=== PATIENT | male | born 1960 | race Hispanic/Latino ===

== ENCOUNTER 2018-02-02 19:45 | Emergency (ER) | payer OTHER ==
[~2018-02-02] VITALS: Ht 170.2 cm; Wt 123.0 kg
[2018-02-02] MEDS ORDERED: MEDDOSEPAK PO (21:21)
[2018-02-02] MEDS ORDERED: PERCOCET 10/31 COMBO PO (21:21)
[2018-02-02 21:35] VITALS: BP 133/85
== END 2018-02-02 21:50 | disposition home or self-care (01) | DRG 552 ==
LOC: ED 19:45
DX: M51.36 Other intervertebral disc degeneration, lumbar region (principal); W17.89XA Other fall from one level to another, initial encounter; Y93.89 Activity, other specified; Y92.89 Other specified places as the place of occurrence of the external cause

== ENCOUNTER 2020-12-12 18:50 | Observation (INO) | payer OTHER ==
[~2020-12-12] VITALS: Ht 170.2 cm; Wt 126.2 kg
[~2020-12-12 18:50] MED LIST: MEDDOSEPAK PO; PERCOCET 10/31 COMBO PO
[2020-12-12 20:17] LABS: HEMATOCRIT 38.7 % (39.0-50.0); HEMOGLOBIN 13.3 g/dl (14.0-18.0); IMMATURE GRANULOCYTES 0.6 % (0.0-5.0); MEAN CELL VOLUME 92.4 fL CALC (80.0-100.0); MEAN CORPUSCULAR HGB 31.7 pG CALC (26.0-32.0); MEAN CORPUSCULAR HGB CONC 34.4 g/dL CAL (32.0-36.0); NEUT# 5.4 thou/uL (1.82-7.42); RED BLOOD COUNT 4.19 mill/uL (4.70-6.10); RED CELL DISTRI WIDTH 12.2 % (11.5-15.5)
[2020-12-12 20:21] LABS: URINE BLOOD DIPSTICK SMALL (NEGATIVE); URINE GLUCOSE - DIPSTICK NEGATIVE (NEGATIVE); URINE KETONE 15 mg/dL (NEGATIVE); URINE LEUK ESTERASE NEGATIVE (NEGATIVE); URINE NITRITE - DIPSTICK NEGATIVE (Negative); URINE PROTEIN - DIPSTICK 100 mg/dL (NEG-TRACE); URINE SPECIFIC GRAVITY >=1.030
[2020-12-12 20:23] LABS: URINE BILIRUBIN - DIPSTICK MODERATE (NEGATIVE); URINE COLOR AMBER
[2020-12-12 20:29] LABS: URINE RBC 0-2 RBC/hpf (0-5)
[2020-12-12 20:30] LABS: URINE MUCUS FEW hpf (NONE-FEW); URINE SPERM MODERATE hpf (NONE-RARE); URINE WBC 0-2 WBC/hpf (0-5)
[2020-12-12 20:35] LABS: ALBUMIN 4.1 g/dL (3.2-5.0); ALKALINE PHOSPHATASE 58 u/l (38-126); ANION GAP 12 (6-22 (CALC)); BILIRUBIN, TOTAL 0.9 mg/dL (0.0-1.4); BUN 15 mg/dL (8-23); BUN/CREATININE RATIO 20 (12-20 (CALC)); CARBON DIOXIDE 25 mmol/l (22-30); CHLORIDE 102 mmol/l (95-108); CREATININE 0.8 mg/dL (0.7-1.3); GFR > 60 ML/MIN (>=60 (CALC)); GFR FOR AFR.AMER. > 60 ML/MIN (>=60 (CALC)); POTASSIUM 3.8 mmol/l (3.5-5.1); SGOT/AST 48 u/l (19-48); SODIUM 136 mmol/l (137-146)
[2020-12-12 20:47] LABS: MYOGLOBIN 183 ng/mL (0 - 121)
[2020-12-12 23:45] VITALS: BP 134/83
[2020-12-13 04:00] VITALS: BP 119/70
[2020-12-13] MEDS ORDERED: ZESTRIL10 M1 PO (11:28)
[2020-12-13] MEDS ORDERED: LEVOTHYROXIN100 MCG PO (11:29)
[2020-12-13] MEDS ORDERED: BAMLANIVIMAB IV (11:33)
[2020-12-13] MEDS ORDERED: AZITHROMYCIN500 MG PO (11:33)
[2020-12-13 11:40] VITALS: BP 133/84
[2020-12-13] MEDS ORDERED: DEXAMETHASON6 MG PO (12:47)
== END 2020-12-13 13:32 | disposition home or self-care (01) | DRG 177 ==
LOC: ED 18:50 → ED-I 22:15 → ED 22:34 → MS2 22:35
PROVIDERS: Emergency Medicine; ADMIT Internal Medicine; ATTEND Internal Medicine
DX: U07.1 COVID-19 (principal); J12.82 Pneumonia due to coronavirus disease 2019; I10 Essential (primary) hypertension; G47.30 Sleep apnea, unspecified
CPT/HCPCS: G0378; Q9967

== ENCOUNTER 2022-01-19 12:19 | Observation (INO) | payer SELFPAY ==
[~2022-01-19] VITALS: Ht 170.2 cm; Wt 124.0 kg
[~2022-01-19 12:19] MED LIST changes: +AZITHROMYCIN500 MG PO; +BAMLANIVIMAB IV; +DEXAMETHASON6 MG PO; +LEVOTHYROXIN100 MCG PO; +ZESTRIL10 M1 PO
[2022-01-19 13:18] LABS: IMMATURE GRANULOCYTES 0.2 % (0.0-5.0); MEAN CELL VOLUME 96.9 fL CALC (80.0-100.0); MEAN CORPUSCULAR HGB 31.9 pG CALC (26.0-32.0); NEUT# 15.11 thou/uL (1.82-7.42); RED BLOOD COUNT 4.79 mill/uL (4.70-6.10); RED CELL DISTRI WIDTH 12.5 % (11.5-15.5)
[2022-01-19 13:20] LABS: HEMATOCRIT 46.4 % (39.0-50.0); HEMOGLOBIN 15.3 g/dl (14.0-18.0)
[2022-01-19 13:28] LABS: ALBUMIN 4.5 g/dL (3.2-5.0); ALKALINE PHOSPHATASE 67 u/l (38-126); AMYLASE 118 u/l (30-110); ANION GAP 15 (6-22 (CALC)); BILIRUBIN, TOTAL 0.9 mg/dL (0.0-1.4); BUN 12 mg/dL (8-23); BUN/CREATININE RATIO 15 (12-20 (CALC)); CARBON DIOXIDE 25 mmol/l (22-30); CHLORIDE 103 mmol/l (95-108); CREATININE 0.8 mg/dL (0.7-1.3); GFR > 60 ML/MIN (>=60 (CALC)); GFR FOR AFR.AMER. > 60 ML/MIN (>=60 (CALC)); LIPASE 150 u/l (23-300); SGOT/AST 30 u/l (19-48); SODIUM 139 mmol/l (137-146)
[2022-01-19] MEDS ORDERED: LORATADINE10 M1 PO (13:35)
[2022-01-19] MEDS ORDERED: ASPIRIN81 MG PO (13:35)
[2022-01-19 17:38] LABS: URINE BILIRUBIN - DIPSTICK NEGATIVE (NEGATIVE); URINE BLOOD DIPSTICK MODERATE (NEGATIVE); URINE COLOR YELLOW; URINE GLUCOSE - DIPSTICK NEGATIVE (NEGATIVE); URINE KETONE NEGATIVE (NEGATIVE); URINE LEUK ESTERASE NEGATIVE (NEGATIVE); URINE PH 6.5 (4.5-8.0); URINE PROTEIN - DIPSTICK TRACE mg/dL (NEG-TRACE)
[2022-01-19 17:39] LABS: URINE NITRITE - DIPSTICK NEGATIVE (Negative)
--- NOTE | 2022-01-19 22:56 | NUR ---
PATIENT TO ROOM VIA WHEELCHAIR ACCOMPANIED BY ER NURSE. PATIENT TRANSFERRED TO BED WITH MINIMAL ASSISTANCE. PT IS ALERT AND ORIENTED X3. ADMISSION ASSESSMENT COMPLETED AT THIS TIME. IV PATENT X1. ORIENTED PATIENT TO ROOM AND UNIT. CALL LIGHT IN REACH. WILL CONTINUE TO MONITOR.
[2022-01-19 23:00] VITALS: BP 120/76
--- NOTE | 2022-01-19 23:00 | NUR ---
PT TRANSPORTED TO [facility] VIA WHEEL CHAIR BY ED STAFF.
--- NOTE | 2022-01-20 | NUR ---
PT RESTING IN BED WITH EYES CLOSED, RESPIRATIONS ARE EQUAL AND NON-LABORED, NO S/SX OF DISTRESS OR DISCOMFORT NOTED, CALL LIGHT WITHIN REACH, WILL CONTINUE TO MONITOR.
[2022-01-20 04:00] VITALS: BP 117/73
[2022-01-20 05:31] LABS: HEMATOCRIT 42.1 % (39.0-50.0); HEMOGLOBIN 13.6 g/dl (14.0-18.0); MEAN CELL VOLUME 97.9 fL CALC (80.0-100.0); MEAN CORPUSCULAR HGB 31.6 pG CALC (26.0-32.0); MEAN CORPUSCULAR HGB CONC 32.3 g/dL CAL (32.0-36.0); RED BLOOD COUNT 4.3 mill/uL (4.70-6.10); RED CELL DISTRI WIDTH 12.6 % (11.5-15.5)
[2022-01-20 05:51] LABS: ANION GAP 14 (6-22 (CALC)); BUN 15 mg/dL (8-23); BUN/CREATININE RATIO 18 (12-20 (CALC)); CARBON DIOXIDE 26 mmol/l (22-30); CHLORIDE 103 mmol/l (95-108); CREATININE 0.9 mg/dL (0.7-1.3); GFR > 60 ML/MIN (>=60 (CALC)); GFR FOR AFR.AMER. > 60 ML/MIN (>=60 (CALC)); MAGNESIUM 2.2 mg/dL (1.6-2.3); SODIUM 139 mmol/l (137-146)
--- NOTE | 2022-01-20 08:00 | NUR ---
SHIFT CHANGE REPORT, PT AWAKE ALERT AND ORIENTED, C/O ACHING ABD PAIN @ 3/10 TO RIGHT ABD, IVF INFUSING, CALL MCMILLAN IN REACH AND BED LOCKED IN LOWEST POSITION.
--- NOTE | 2022-01-20 12:00 | NUR ---
RESTING IN BED, ALL NEEDS ADDRESSED, WILL CONTINUE TO MONITOR.
[2022-01-20 15:30] VITALS: BP 87/33
--- NOTE | 2022-01-20 16:00 | NUR ---
C/O ABD PAIN @ 03/10, CINCERN ADDRESSED WITH POSITIVE RESULTS.
[2022-01-20 19:00] VITALS: BP 108/59
--- NOTE | 2022-01-20 19:59 | NUR ---
PT IC FLUIDS PAUSED, PT WOULD LIKE TO TAKE A SHOWER. IV SITE COVERED WITH AQUAGUARD, BATHROOM SET UP, TOWELS PROVIDED, AND TOILETRIES. ORITNETED PT TO BATHROOM CALL LIGHT SYSTEM AND ISTRUCTED TO CALL IF HELP IS NEEDED.
--- NOTE | 2022-01-21 00:09 | NUR ---
ANTIBIOTIC AND NEW BAG OF NORMAL SALINE HUNG AT THIS TIME. PT DENIES ANY CURRENT PAIN, EDUCATION PROVIDED REGARDING THE USE OF ANTIBIOTICS. CALL LIGHT AND BEDSIDE TABLE WITHIN REACH.
[2022-01-21 05:08] VITALS: BP 115/63
[2022-01-21 05:38] LABS: HEMATOCRIT 44.5 % (39.0-50.0); HEMOGLOBIN 14.9 g/dl (14.0-18.0); MEAN CELL VOLUME 97.4 fL CALC (80.0-100.0); MEAN CORPUSCULAR HGB 32.6 pG CALC (26.0-32.0); MEAN CORPUSCULAR HGB CONC 33.5 g/dL CAL (32.0-36.0); RED BLOOD COUNT 4.57 mill/uL (4.70-6.10); RED CELL DISTRI WIDTH 12.4 % (11.5-15.5)
--- NOTE | 2022-01-21 06:26 | NUR ---
PATIENT UP TO THE RESTROOM. NEW BAG OF ANTIBIOTICS HUNG AT THIS TIME,
[2022-01-21 06:35] LABS: ANION GAP 13 (6-22 (CALC)); BUN 16 mg/dL (8-23); BUN/CREATININE RATIO 20 (12-20 (CALC)); CARBON DIOXIDE 23 mmol/l (22-30); CHLORIDE 108 mmol/l (95-108); CREATININE 0.8 mg/dL (0.7-1.3); GFR > 60 ML/MIN (>=60 (CALC)); GFR FOR AFR.AMER. > 60 ML/MIN (>=60 (CALC)); MAGNESIUM 2.4 mg/dL (1.6-2.3); POTASSIUM 3.8 mmol/l (3.5-5.1); SODIUM 140 mmol/l (137-146)
[2022-01-21 08:32] VITALS: BP 95/75
--- NOTE | 2022-01-21 08:45 | NUR ---
RECEIVE REPORT FROM JOYCE LR. PATIENT ALERT AND ORIENTED. NO RESPIRATORY DISTRESS, NO PAIN AT THIS TIME. EDUCATED PATIENT ABOUT MEDICATIONS AND PLAN OF CARE. PATIENT REFER UNDERSTAND.
[2022-01-21 15:41] VITALS: BP 115/63
[2022-01-21 18:43] VITALS: BP 125/71
--- NOTE | 2022-01-21 19:55 | NUR ---
PATIENT ALERT AND ORIENTED. [place]ESE SPEAKING BUT IS ABLE TO UNDERSTAND SOME SAMI. ASSESSMENT COMPLETE. RATES PAIN OF 2 BUT REFUSED PAIN MEDICATION. PAIN LOCATED LOWER RIGHT ABDOMEN AND RADIATES TO THE BACK. NO SIGNS OF DISTRESS. PATIENT REMAINS NPO PER ORDERS. IV FLUIDS REMAIN INFUSING PER ORDERS. CALL LIGHT AND BELONGINGS REMAIN IN REACH.
--- NOTE | 2022-01-21 23:50 | NUR ---
PATIENT RESTING IN BED QUIETLY. NO COMPLAINTS VOICED AT THIS TIME. NEW BAG OF IVF HUNG. IV ZOSYN HUNG PER ORDERS WELL. CALL LIGHT AND BELONGINGS REMAIN IN REACH.
[2022-01-22 04:00] VITALS: BP 118/63
--- NOTE | 2022-01-22 04:15 | NUR ---
RESTING IN BED. NO COMPLAINTS VOICED AT THIS TIME. CALL LIGHT AND BELONGINGS REMAIN IN PATIENTS REACH.
[2022-01-22 06:03] LABS: MEAN CELL VOLUME 97.2 fL CALC (80.0-100.0); MEAN CORPUSCULAR HGB 32.1 pG CALC (26.0-32.0); RED BLOOD COUNT 3.96 mill/uL (4.70-6.10); RED CELL DISTRI WIDTH 12.2 % (11.5-15.5)
[2022-01-22 06:16] LABS: HEMATOCRIT 38.5 % (39.0-50.0); HEMOGLOBIN 12.7 g/dl (14.0-18.0)
[2022-01-22 06:25] LABS: ANION GAP 12 (6-22 (CALC)); BUN 12 mg/dL (8-23); BUN/CREATININE RATIO 17 (12-20 (CALC)); CARBON DIOXIDE 22 mmol/l (22-30); CHLORIDE 108 mmol/l (95-108); CREATININE 0.7 mg/dL (0.7-1.3); GFR > 60 ML/MIN (>=60 (CALC)); GFR FOR AFR.AMER. > 60 ML/MIN (>=60 (CALC)); POTASSIUM 3.9 mmol/l (3.5-5.1); SODIUM 139 mmol/l (137-146)
--- NOTE | 2022-01-22 08:00 | NUR ---
PT SITTING IN BED. A&O X3. NO DISTRESS NOTED. PT DENIES ANY PAIN OR N&V. DOES STATE PAIN IS BETTER COMPARED TO YESTERDAY ALTHOUGH STILL C/O OF SLIGHT DISCOMFORT IN RLQ. CLEAR BREATH SOUNDS UPON AUSUCLTATION. ACTIVE BOWEL SOUNDS X4 QUADRANTS. IV HEALTHY AND PATENT WITH IVF INFUSING PER MAR ORDER. NO OTHER NEEDS AT THIS TIME. ASSESSMENT COMPLETED. DISCUSSED POC. CALL LIGHT WITHIN REACH.
--- NOTE | 2022-01-22 09:30 | NUR ---
PER JUAN MANUEL IN [place], PT ALLOWED TO HAVE BREAKFAST IF PERMITTED; NUCLEAR MED DOSE NOT AVAILABLE AT THIS TIME; PT TO HAVE SCAN COMPLETED AT OR AFTER 2 PM. PT REQUIRED TO BE NPO 4-6 HOURS PRIOR TO SCAN; NO PAIN MEDICATION ALSO FOR 4-6 HOURS PRIOR TO SCAN.
--- NOTE | 2022-01-22 10:57 | NUR ---
PHYSICIAN AT BEDSIDE.
--- NOTE | 2022-01-22 12:15 | NUR ---
PT SITTING IN BED. NO DISTRESS NOTED. CALL LIGHT WITHIN REACH.
--- NOTE | 2022-01-22 12:49 | NUR ---
DR MCKEON AT BEDSIDE DISCUSSING POC
--- NOTE | 2022-01-22 17:13 | NUR ---
PT UPGRADED TO REGULAR DIET; DENIES ANY PAIN AT THIS TIME. CALL LIGHT WITHIN REACH.
--- NOTE | 2022-01-22 18:10 | NUR ---
PT SITTING ON THE SIDE OF THE BED EATING DINNER. PT TOLERATING DINNER WELL DENIES ANY PAIN. CALL LIGHT WITHIN REACH.
[2022-01-22 18:23] VITALS: BP 140/77
--- NOTE | 2022-01-22 19:25 | NUR ---
PATIENT RESTING IN BED ON HIS RIGHT SIDE. DENIES ANY PAIN. NO SIGNS OF DISTRESS. ASSESSMENT COMPLETE. NO BOWEL MOVEMENT NOTED. NO COMPLAINTS OF NAUSEA. NO TENDERNESS TO ABDOMEN. CALL LIGHT AND BELONGINGS REMAIN IN REACH.
--- NOTE | 2022-01-23 00:39 | NUR ---
PATIENT RESTING IN BED. NO COMPLAINTS. IV ABT HUNG PER ORDERS. PATIENT AMBULATED TO RESTROOM WITHOUT DIFFICULTY. CALL LIGHT AND BELONGINGS REMAIN IN REACH.
[2022-01-23 04:00] VITALS: BP 148/80
--- NOTE | 2022-01-23 04:10 | NUR ---
PATIENT RESTING IN BED. NO COMPLAINTS VOICED AT THIS TIME. NO SIGNS OF DISTRESS. CALL LIGHT AND BELONGINGS REMAIN IN REACH.
--- NOTE | 2022-01-23 07:00 | NUR ---
SHIFT CHANGE REPORT, PT AWAKE ALERT AND ORIENTED, DENIES PAIN, IVF INFUSING, ALL NEEDS ADDRESSED, CALL MCMILLAN IN REACH AND BED LOCKED IN LOWEST POSITION.
[2022-01-23 08:04] VITALS: BP 134/74
--- NOTE | 2022-01-23 09:06 | NUR ---
DR MCKEON JUST CALLED [facility] STAFF HIDA SCAN WAS POSITIVE AND IF PT WANTS TO HAVE SURGERY HERE IN AM HE WILL HAVE IT DONE BUT IF HE WANTS TO GO HOME AND SEE HIM IN OFICE HE HAS THAT OPTION, PT INFORMED OF PLAN AND DECIDED TO GO HOME, MONITOR/MODIFY HIS DIET AND FOLLOW UP INSTRUCTED/NEEDED.
--- NOTE | 2022-01-23 12:45 | NUR ---
DR MCKEON ROUNDED AND DISCUSED OPTIONS FOR TREATMENT WITH PT, EGG PACKER IN ROOM AND TRANSLATED, PT STATED UNDERSTANDING AND DECIDED TO HAVE SURGERY DONE IN AM, WILL CONTINUE TO MONITOR.
[2022-01-23 15:40] VITALS: BP 132/79
--- NOTE | 2022-01-23 16:50 | NUR ---
SHOWERED AND RESTING IN BED, NO C/O DISCOMFORT, ALL NEEDS ADDRESSED, WILL CONTINUE TO MONITOR.
[2022-01-23 18:54] VITALS: BP 133/78
--- NOTE | 2022-01-23 19:15 | NUR ---
ASSEMENT COMPLETED A THIS TIME.
[2022-01-24] VITALS (9 sets, daily range): BP systolic 130–150; BP diastolic 69–82
--- NOTE | 2022-01-24 | NUR ---
ANTIBIOTIC HUNG AT THIS TIME. CALL LIGHT AND BEDSIDE TABLE WITHIN REACH.
[2022-01-24 05:51] LABS: HEMATOCRIT 37.3 % (39.0-50.0); HEMOGLOBIN 12.7 g/dl (14.0-18.0); MEAN CELL VOLUME 95.2 fL CALC (80.0-100.0); MEAN CORPUSCULAR HGB 32.4 pG CALC (26.0-32.0); RED BLOOD COUNT 3.92 mill/uL (4.70-6.10); RED CELL DISTRI WIDTH 12.1 % (11.5-15.5)
[2022-01-24 06:09] LABS: ANION GAP 11 (6-22 (CALC)); BUN 9 mg/dL (8-23); BUN/CREATININE RATIO 13 (12-20 (CALC)); CARBON DIOXIDE 23 mmol/l (22-30); CHLORIDE 108 mmol/l (95-108); CREATININE 0.7 mg/dL (0.7-1.3); GFR > 60 ML/MIN (>=60 (CALC)); GFR FOR AFR.AMER. > 60 ML/MIN (>=60 (CALC)); MAGNESIUM 1.9 mg/dL (1.6-2.3); SODIUM 137 mmol/l (137-146)
--- NOTE | 2022-01-24 06:50 | NUR ---
REPORT REC FROM Clarissa TO RN
--- NOTE | 2022-01-24 07:10 | NUR ---
PT LAYING IN BED. A&O X3. NO DISTRESS NOTED. PT DENIES ANY PAIN AT THIS TIME. UPDATED PT ON SURGICAL PLAN ALONG WITH FISCAL ECONOMIST TIME. CLEAR BREATH SOUNDS UPON AUSCULTATION. ACTIVE BOWEL SOUNDS X4 QUADRANTS. IV HEALTHY AND PATENT WITH IVF INFUSING PER MAR ORDER. ASSESSMENT COMPLETED. DISCUSSED POC. CALL LIGHT WITHIN REACH.
--- NOTE | 2022-01-24 07:30 | NUR ---
INFORMED CONSENT OBTAINED FOR LAPAROSCOPIC CHOLECYSTECTOMY POSSIBLE OPENED
--- NOTE | 2022-01-24 09:48 | NUR ---
DR TIRADO AND Nitish IRWIN DAM WORKER AT BEDSIDE DISCUSSING POC
--- NOTE | 2022-01-24 10:22 | NUR ---
[facility]. IV REMAINS HEALTHY AND PATENT.
[2022-01-24] MEDS ORDERED: PERCOCET 5/321 COMBO PO (12:11)
--- NOTE | 2022-01-24 12:43 | NUR ---
PT REMAINS IN SURGERY
--- NOTE | 2022-01-24 13:09 | NUR ---
PT ARRIVED FROM OR IN STABLE CONDITION VIA STRETCHER ON RA., NEW IV SITE #20G RH WITH IVF AND ABX RUNNING. BOTH REINITIATED PER MAR ORDERS. PT AWAKE AND ALERT, DENIES ANY PAIN. X4 LAPAROSCOPIC INCISIONS NOTED WITH DERMABOND.
--- NOTE | 2022-01-24 15:25 | NUR ---
PT UP TO BATHROOM TO VOID. NO NEEDS AT THIS TIME. PT TOLERATED WELL ABLE TO DRINK WATER WITH NO DIFFICULTY. CALL LIGHT WITHIN REACH.
== END 2022-01-24 19:00 | disposition home or self-care (01) | DRG 418 ==
LOC: ED 12:19 → ED-I 17:10 → ED 17:23 → MS2 17:24 → ED-I 17:24 → MS2 20:16
PROVIDERS: Family Medicine; Nurse Practitioner; ADMIT Hospitalist; ATTEND Hospitalist
PROC: 0FT44ZZ Resection of Gallbladder, Percutaneous Endoscopic Approach (ICD-10-PCS; principal; 2022-01-24)
DX: K81.0 Acute cholecystitis (principal); Z68.41 Body mass index [BMI] 40.0-44.9, adult; I95.9 Hypotension, unspecified; I10 Essential (primary) hypertension; E03.9 Hypothyroidism, unspecified; G47.30 Sleep apnea, unspecified; E66.9 Obesity, unspecified; Z20.822 Contact with and (suspected) exposure to COVID-19
CPT/HCPCS: A9537; G0378; J0131; J1100; J1610; J2805; Q9967